=== PATIENT | female | born 1995 | race Caucasian/White ===

== ENCOUNTER 2020-12-01 12:47 | Emergency (ER) | payer BC ==
[~2020-12-01] VITALS: Ht 157.5 cm; Wt 54.4 kg
[2020-12-01 14:02] LABS: ABSOLUTE EOSINOPHILS 0.1 thou/uL (0.0-0.7); ABSOLUTE LYMPHOCYTES 2.2 thou/uL (0.8-5.3); ABSOLUTE MONOCYTES 0.4 thou/uL (0.0-1.2); ABSOLUTE NEUTROPHILS 3.3 thou/uL (1.6-8.1); BASOPHILS 0.8 %; EOSINOPHILS 1.1 %; HEMATOCRIT 37.3 % (37.0-47.0); HEMOGLOBIN 12.9 gm/dL (12.0-15.0); LYMPHOCYTES 36.4 %; MCH 30.8 pg (26.0-34.0); MCHC 34.6 g/dL (28.0-37.0); MCV 89.1 fL (80.0-100.0); MONOCYTES 6.9 %; MPV 7.9 fl. (7.2-11.1); NUCLEATED RBCS 0 /100WBC; PLATELET COUNT* 251 thou/uL (150-400); POLYS 54.8 %; RBC 4.18 mil/uL (4.20-5.00); RDW-CV 13.4 % (10.5-14.5); WBC 6.1 thou/uL (4.0-11.0)
[2020-12-01 14:14] LABS: CALCIUM 8.7 mg/dL (8.5-10.1); CREATININE 0.9 mg/dL (0.6-1.3); POTASSIUM 3.7 mmol/L (3.5-5.1)
[2020-12-01 14:24] LABS: ALBUMIN 4.4 g/dL (3.4-5.0); MAGNESIUM 1.8 mg/dL (1.8-2.4); TOTAL BILIRUBIN 0.8 mg/dL (<0.1-1.0); TOTAL PROTEIN 7.2 g/dL (6.4-8.2)
[2020-12-01] MEDS ORDERED: VENTOLIN HFA 1818 GM INH (15:07)
[2020-12-01] MEDS ORDERED: HYDROCODON-ACE1 EAC7 PO (15:07)
[2020-12-01] MEDS ORDERED: CIPROFLOXIN HC2.5 M1 OPHTHALMIC (15:07)
[2020-12-01 15:17] VITALS: BP 109/61
--- NOTE | 2020-12-01 15:57 | EKG ---
[place] [address] ELECTROCARDIOGRAM REPORT Name: ROSANNE BOWLESPRIYA MOODY Room: [facility]#: [id number] Admission: 12/01/20 Attend Phys: Discharge: Date of : [birth year] Date of Service: 12/01/20 1247 Report #: [id number] THIS REPORT FOR: //name// [facility] ED Test Date: 2020-12-01 Test Time: 12:47:38 Pat Name: JACOBO BOWLES Department: Room: Gender: Toe [employer]er: : 1995 Requested By: Demond Molina Order Number: [id number] MD: Mark Nguyen Measurements Intervals [place] Rate: 75 P: 39 PA: 136 QRS: 65 QRSD: 80 T: 38 QT: 373 QTc: 417 Interpretive Statements Sinus arrhythmia No previous ECG available for comparison Electronically Signed On 12-01-2020 15:57:06 CDT by Mark Nguyen [email or web address] <ELECTRONICALLY SIGNED> By: Mark Nguyen MD, [facility] 12/01/20 1557 1247 1247 Mark Nguyen MD, FACC /EPI
== END 2020-12-01 16:30 | disposition home or self-care (01) ==
LOC: M.ERS 12:47
PROVIDERS: Emergency Medicine Emergency Medical Services
DX: S05.01XA Injury of conjunctiva and corneal abrasion without foreign body, right eye, initial encounter (principal); R07.89 Other chest pain; Z20.822 Contact with and (suspected) exposure to COVID-19; X58.XXXA Exposure to other specified factors, initial encounter; Y93.89 Activity, other specified; Y92.89 Other specified places as the place of occurrence of the external cause; Y99.8 Other external cause status

== ENCOUNTER 2021-05-01 08:33 | Emergency (ER) | payer BC ==
[~2021-05-01] VITALS: Ht 157.5 cm; Wt 54.4 kg
[~2021-05-01 08:33] MED LIST: CIPROFLOXIN HC2.5 M1 OPHTHALMIC; HYDROCODON-ACE1 EAC7 PO; VENTOLIN HFA 1818 GM INH
[2021-05-01] MEDS ORDERED: EPIPEN 2-P0.3 MG/0.3 IM (11:17)
[2021-05-01] MEDS ORDERED: PREDNISONE50 MG PO (11:17)
[2021-05-01] MEDS ORDERED: DIPHENHIST50 MG PO (11:17)
[2021-05-01 11:37] VITALS: BP 102/59
== END 2021-05-01 11:38 | disposition home or self-care (01) ==
LOC: M.ERS 08:33
DX: T78.1XXA Other adverse food reactions, not elsewhere classified, initial encounter (principal); L50.8 Other urticaria; J45.909 Unspecified asthma, uncomplicated; Z86.16 Personal history of COVID-19; X58.XXXA Exposure to other specified factors, initial encounter